=== PATIENT | male | born 1995 | race Caucasian/White ===

== ENCOUNTER 2016-12-27 23:10 | Emergency (ER) | payer SELFPAY ==
[~2016-12-27] VITALS: Ht 182.9 cm; Wt 71.4 kg
[2016-12-27 23:12] VITALS: BP 113/71
== END 2016-12-28 00:04 | disposition home or self-care (01) ==
LOC: ED 23:59
DX: L03.116 Cellulitis of left lower limb (principal); L03.115 Cellulitis of right lower limb
CPT/HCPCS: 99283